=== PATIENT | female | born 1965 | race African-American/Black ===

== ENCOUNTER 2021-01-24 14:01 | Inpatient (IN) ==
[2021-01-24] MEDS ORDERED: NS 0.9% 1000 ml BAG 1,000 ML IV ONE (14:10)
[2021-01-24] MEDS ORDERED: Ondansetron 4 mg VIAL 2 MG/ML 2 ml VIAL IV ONE (14:14)
[2021-01-24 14:43] LABS: ABS Lymphocytes 1.8 10^3/ul (1.0-4.8); ABS Monocytes 0.2 10^3/ul (0-0.8); ABS Neutrophils 3.2 10^3/ul (1.5-7.7); Eosinophil % 0.8 %; Hematocrit 41 % (35-47); Hemoglobin 14.1 g/dL (12.0-16.0); Lymphocyte % 34.1 %; Mean Corpuscular HGB Conc 35 g/dL (31-36); Mean Corpuscular Hemoglobin 32 pg (27-31); Mean Corpuscular Volume 94 fL (80-97); Mean Platelet Volume 7.9 fL (7.4-10.4); Nucleated Red Blood Cells % 0.1; Platelet Count 292 10^3/uL (150-450); Red Blood Count 4.36 10^6 /uL (3.70-4.87); Red Cell Distribution Width 14 % (10-15); White Blood Count 5.3 10^3/uL (3.5-10.8)
[2021-01-24 15:38] LABS: Albumin 4.1 g/dL (3.2-5.2); Albumin/Globulin Ratio 1.1 (1-3); BUN/Creatinine Ratio 15.6 (8-20); C Reactive Protein 3.77 mg/L (<8.01); Calcium 9.6 mg/dL (8.6-10.3); EGFR African American 175.7 (>60); EGFR Non-African American 145.2 (>60); Globulin 3.6 g/dL (2-4); Potassium 3.3 mmol/L (3.5-5.0); Total Bilirubin 0.4 mg/dL (0.2-1.0); Total Protein 7.7 g/dL (6.4-8.9)
[2021-01-24] MEDS ORDERED: Iohexol 300 (CONTRAST) 10 ML SDV IV ONE (15:40)
[2021-01-24 17:02] LABS: Urine Appearance Clear; Urine Bilirubin Negative (Negative); Urine Blood 1+ (Negative); Urine Color Colorless; Urine Glucose Negative (Negative); Urine Ketones Negative (Negative); Urine Nitrite Negative (Negative); Urine Protein Negative (Negative); Urine Specific Gravity 1.018 (1.010-1.030); Urine Urobilinogen Negative (Negative)
[2021-01-24 17:12] LABS: Urine Bacteria Absent (Absent); Urine Red Blood Cell 1+(3-5/hpf) (Absent); Urine Squamous Epithelial Cell Present (Absent); Urine White Blood Cell Absent (Absent)
[2021-01-24] MEDS ORDERED: HYDROcodone/ACETAMIN 5/325 mg TAB PO ONE (18:00)
[2021-01-24] MEDS ORDERED: Metoclopramide 5 MG/ML VIAL (10 mg) IV SLOW PU ONE (18:04)
[2021-01-24] MEDS ORDERED: Al Hydrox/Mg Hydrox/Simet LIQ 30 ML UDC PO ONE (20:18)
[2021-01-24] MEDS: D5W NS 0.9% 20Meq KCL 1000 ml 1,000 ML IV SCH (22:59)
[2021-01-24] MEDS: Pantoprazole VIAL 40 MG VIAL IV SCH (23:20)
[2021-01-25] MEDS: Morphine 2 MG/ML SYRINGE IV PRN ×4 (00:45→20:07)
[2021-01-25] MEDS: Ondansetron 4 mg VIAL 2 MG/ML 2 ml VIAL IV PRN ×3 (00:45→17:57)
[2021-01-25 05:49] LABS: ABS Eosinophils 0.1 10^3/ul (0-0.6); ABS Lymphocytes 1.6 10^3/ul (1.0-4.8); ABS Monocytes 0.3 10^3/ul (0-0.8); ABS Neutrophils 2.3 10^3/ul (1.5-7.7); Eosinophil % 1.7 %; Hematocrit 34 % (35-47); Lymphocyte % 37.8 %; Mean Corpuscular HGB Conc 35 g/dL (31-36); Mean Corpuscular Hemoglobin 33 pg (27-31); Mean Corpuscular Volume 93 fL (80-97); Mean Platelet Volume 7.9 fL (7.4-10.4); Platelet Count 249 10^3/uL (150-450); Red Blood Count 3.68 10^6 /uL (3.70-4.87); Red Cell Distribution Width 14 % (10-15); White Blood Count 4.4 10^3/uL (3.5-10.8)
[2021-01-25 06:04] LABS: INR 1.15 (0.82-1.09)
[2021-01-25 06:09] LABS: BUN/Creatinine Ratio 15.9 (8-20); Calcium 8.7 mg/dL (8.6-10.3); EGFR African American 180.3 (>60); Potassium 3.5 mmol/L (3.5-5.0)
[2021-01-25] MEDS: D5W NS 0.9% 20Meq KCL 1000 ml 1,000 ML IV SCH (08:03)
[2021-01-25] MEDS: Pantoprazole VIAL 40 MG VIAL IV SCH (09:49)
[2021-01-25] MEDS ORDERED: Pantoprazole VIAL 40 MG VIAL IV SCH ×2 (10:00→15:00)
[2021-01-25] MEDS ORDERED: fentaNYL 100 mcg/2 ml 50 MCG/ML VIAL ONE (11:34)
[2021-01-25] MEDS ORDERED: Midazolam 10 mg/10 ml VIAL 1 mg/ml 10 ml VIAL (10 mg) ONE (11:34)
[2021-01-25] MEDS ORDERED: diPHENhydraMINE IV 50 MG/ML 1 ml VIAL (BENADRYL) ONE (11:34)
[2021-01-26] MEDS: Ondansetron 4 mg VIAL 2 MG/ML 2 ml VIAL IV PRN ×2 (04:07→13:44)
[2021-01-26] MEDS: Morphine 2 MG/ML SYRINGE IV PRN ×5 (04:07→22:23)
[2021-01-26] MEDS: Pantoprazole VIAL 40 MG VIAL IV SCH ×2 (05:48→17:55)
[2021-01-26 09:17] LABS: BUN/Creatinine Ratio 7.7 (8-20); Calcium 9.6 mg/dL (8.6-10.3); EGFR African American 148.7 (>60); EGFR Non-African American 122.9 (>60); Potassium 3.6 mmol/L (3.5-5.0)
[2021-01-26] MEDS: Prochlorperazine 5 mg/ml 2 ml VIAL (10 mg) IV PRN (22:21)
[2021-01-27] MEDS: Pantoprazole VIAL 40 MG VIAL IV SCH (05:29)
[2021-01-27] MEDS: Morphine 2 MG/ML SYRINGE IV PRN (09:03)
[2021-01-27] MEDS: Prochlorperazine 5 mg/ml 2 ml VIAL (10 mg) IV PRN (09:03)
[2021-01-27 15:50] VITALS: BP 142/72
== END 2021-01-27 16:00 | disposition home health service (06) | DRG 241 ==
LOC: ED 14:01 → SSU 14:01
PROVIDERS: ADMIT Internal Medicine; ATTEND Pediatrics